=== PATIENT | female | born 1985 | race Caucasian/White ===

== ENCOUNTER 2019-01-12 11:27 | Day surgery (SDC) | payer OTHER ==
[2019-01-11 08:47] VITALS: BMI 43.4
[~2019-01-12 11:27] MED LIST: DEXAMETHASONE SOD PHOSPHATE 10 MG/ML 1 ML VIAL IV ONE; LACTATED RINGERS 1,000 ML IV SCH; LIDOCAINE 1% 20 ML VIAL (10MG/ML) FOR IV START INTRADERMA PRN; Pre Op ABX Message 1 EACH MISC MISCELLANE ONE; fentaNYL (PF) 50 MCG/ML 2 ML AMP IV PRN
[2019-01-12 12:18] VITALS: BP 151/83; PULSE 78; RESP 18; TEMP 97.3
[2019-01-12] MEDS ORDERED: ONDANSETRON 4 MG/2 ML VIAL IVP ONE (12:18)
== END 2019-01-12 17:13 | disposition home or self-care (01) ==
LOC: OR 11:27
PROVIDERS: ATTEND Orthopaedic Surgery
DX: G56.02 Carpal tunnel syndrome, left upper limb (principal); Z53.29 Procedure and treatment not carried out because of patient's decision for other reasons
CPT/HCPCS: J1100; J2405

== ENCOUNTER → 2019-01-15 | Day surgery (SDC) | payer OTHER ==
[~2019-01-15] MED LIST changes: +ACETAMINOPHEN IV (For NPO) 1,000 MG in EMPTY BAG 1 BAG IVPB ONE; +BUPIVACAINE (PF) 0.5% 30 ML VIAL SQ ONE; +GLYCOPYRROLATE 0.2 MG/ML 2 ML VIAL ONE; +KETAMINE 10 MG/ML 20 ML VIAL ONE; +KETOROLAC 30 MG/ML 1 ML VIAL ONE; +LACTATED RINGERS 1,000 ML IV ONE; -LACTATED RINGERS 1,000 ML IV SCH; +LIDOCAINE 1% 20 ML VIAL (10MG/ML) FOR IV START INTRADERMA ONE; -LIDOCAINE 1% 20 ML VIAL (10MG/ML) FOR IV START INTRADERMA PRN; +LIDOCAINE 1% INJ 10MG/ML (20 ML MDV) ONE; +LIDOCAINE 1%-EPI 1:100,000 20 ML VIAL SQ ONE; +LIDOCAINE 1%-EPI 1:100,000 30 ML VIAL SQ ONE; +MIDAZOLAM 2 MG/2 ML VIAL ONE; +ONDANSETRON 4 MG/2 ML VIAL IVP ONE; +PROPOFOL 10 MG/ML 20 ML VIAL IV ONE; -fentaNYL (PF) 50 MCG/ML 2 ML AMP IV PRN
[2019-01-15 11:02] VITALS: BMI 41.7
[2019-01-15 13:34] VITALS: TEMP 97.1
[2019-01-15 14:50] VITALS: RESP 18
[2019-01-15 14:52] VITALS: BP 109/73; PULSE 64
--- NOTE | 2019-01-16 21:19 | P.OP ---
Date of Procedure: 01/15/19 Preoperative Diagnosis: Left carpal tunnel syndrome Postoperative Diagnosis: Left carpal tunnel syndrome Procedure(s) Performed: Left endoscopic carpal tunnel release Anesthesia: VÍCTORA, local Surgeon: Mik Reece Estimated Blood Loss (ml): 2 Condition: stable Disposition: PACU Indications for Procedure: The patient is 33 year-old who was diagnosed with left carpal tunnel syndrome. Treatment options were discussed in the office and the patient chose surgical release. Surgical risks were reviewed outpatient and again in preop. The patient expressed understanding, acceptance of the risks and wished to proceed with surgery. Consent forms were signed. The surgical site was confirmed and marked preoperatively. Description of Procedure: The patient was positioned supine with the operative limb on an arm board. Anesthesia was administered uneventfully. A tourniquet was placed on the left arm. A time-out was performed which confirmed the patient, the operative side, the site and the procedure to be performed. All team members expressed agreement. Using aseptic technique, local anesthetic was injected into the subcutaneous tissues around the planned incision. The left upper extremity was then prepped and draped in standard, sterile fashion. The limb was exsanguinated with an Esmarch and the tourniquet was inflated. A transverse incision was marked just proximal to the wrist flexion crease, in line with the radial border of the ring finger. The skin was sharply incised and the subcutaneous tissues were spread. The volar carpal fascia was identified and sharply incised. This was quite thickened, even proximal to the wrist flexion crease, and the fascial window was extended proximally to release the tension and facilitate the distal exposure. A synovial elevator was used to release adhesions on the underside of the transverse carpal ligament. A dilator was used to sound and enlarge the carpal tunnel. The hamate hook was palpable ulnarly. The side-specific guide and camera were inserted. Of note, the patient's tunnel was quite tight and the smaller guide and camera were utilized. The ligament was clearly visualized above. The endoscopic blade was inserted and the distal half of the ligament was sharply divided. Residual transverse fibers were released distally and then the proximal portion of the ligament was incised. Wide release of ligament was visually confirmed. The camera was removed. Under direct visualization with loupe magnification, the remaining proximal volar carpal fascia was released with scissors. The nerve was still compressed by thickened synovial and perineural tissue. A limited neurolysis and mobilization was performed. The tourniquet was released. A small arterial bleeder near the edge of the incision was coagulated with bipolar cautery. Good hemostasis was obtained. The wound was thoroughly irrigated with normal saline and the incision was closed with interrupted 4-0 Nylon sutures. Additional local anesthetic with epinephrine was injected for postoperative pain control and adjunctive hemostasis. A soft, sterile dressing was applied. All sponge and needle counts were correct at the end of the case. The patient tolerated the procedure well and was transferred to recovery in stable condition.
== END | disposition home or self-care (01) ==
LOC: OR 10:18
PROVIDERS: ATTEND Orthopaedic Surgery
DX: G56.02 Carpal tunnel syndrome, left upper limb (principal); F17.210 Nicotine dependence, cigarettes, uncomplicated; I10 Essential (primary) hypertension; E66.01 Morbid (severe) obesity due to excess calories; F19.11 Other psychoactive substance abuse, in remission; Z86.19 Personal history of other infectious and parasitic diseases; Z68.41 Body mass index [BMI] 40.0-44.9, adult
CPT/HCPCS: 29848; 81025; J2250; J1100; J2405; J2001; J1885; J0131; J2704

== ENCOUNTER 2020-06-09 12:54 | Emergency (ER) | payer OTHER ==
[2020-06-09 13:18] VITALS: BP 169/99; PULSE 98; RESP 18; TEMP 98
[2020-06-09 13:43] LABS: Amphetamine Screen,Urine Not Detected (NotDetected); Barbiturate Screen,Urine Not Detected (NotDetected); Benzodiazepines Screen,Urine Not Detected (NotDetected); Cocaine Screen,Urine Not Detected (NotDetected); Methadone Screen, Urine Not Detected (NotDetected); Opiate Screen,Urine Not Detected (NotDetected); Oxycodone Screen, Urine Not Detected (NotDetected); Phencyclidine Screen,Urine Not Detected (NotDetected); Tricyclic Antidepressant,Urine Not Detected (NotDetected); Urn Cannabinoid Scrn Not Detected (NotDetected)
--- NOTE | 2020-06-09 14:12 | ED ---
General Adult HPI - General Chief complaint: Recheck/Abnormal Lab/Rx Stated complaint: Needs urine drug test Time Seen by Provider: 06/09/20 13:11 Source: patient, RN notes reviewed, old records reviewed Mode of arrival: EMS Limitations: no limitations - History of Present Illness Initial comments: 34-year-old female patient presents to ED request a urine drug screen. Patient is denying any acute complaints this time. Systemic: Pt denies fatigue, fever/chills, rash. Pt denies weakness, night sweats, weight loss. Neuro: Pt denies headache, visual disturbances, syncope or pre-syncope. HEENT: Pt denies ocular discharge or irritation, otalgia, rhinorrhea, pharyngitis or notable lymphadenopathy. Cardiopulmonary: Pt denies chest pain, SOB, heart palpitations, dyspnea on exertion. Abdominal/GI: Pt denies abdominal pain, n/v/d. : Pt denies dysuria, burning w/ urination, frequency/urgency. Denies new onset urinary or bowel incontinence. MSK: Pt denies myalgia, loss of strength or function in extremities. Neuro: Pt denies new onset weakness, paresthesias. - Related Data Home Medications Medication Instructions Recorded Confirmed Methadone HCl [Methadone Intensol] 125 mg PO DAILY 01/12/19 01/15/19 Allergies Allergy/AdvReac Type Severity Reaction Status Date / Time No Known Allergies Allergy Verified 01/15/19 10:41 Review of Systems ROS Statement: Those systems with pertinent positive or pertinent negative responses have been documented in the HPI. ROS Other: All systems not noted in ROS Statement are negative. Past Medical History Past Medical History: Liver Disease, Musculoskeletal Disorder Additional Past Medical History / Comment(s): hx. Hepatitis C, numbness both wrists History of Any Multi-Drug Resistant Organisms: None Reported Additional Past Surgical History / Comment(s): wisdom teeth removed Past Anesthesia/Blood Transfusion Reactions: No Reported Reaction Past Psychological History: No Psychological Hx Reported Past Alcohol Use History: Rare Past Drug Use History: Heroin - Past Family History Father Family Medical History: Cancer General Exam - General Exam Comments Initial Comments: Constitutional: NAD, AOX3, Pt has pleasant affect. HEENT: NC/AT, trachea midline, neck supple, no lymphadenopathy. External ears appear normal, without discharge. Mucous membranes moist. Eyes PERRLA, EOM intact. There is no scleral icterus. No pallor noted. Cardiopulmonary: RRR, no murmurs, rubs or gallops, no JVD noted. Lungs CTAB in anterior and posterior gallegos. No peripheral edema. Neuro: CN II-XII grossly intact. MSK: Full active ROM, ambulatory. Limitations: no limitations Course Vital Signs 06/09/20 13:11 Temperature 98 F Pulse Rate 98 Respiratory 18 Rate Blood Pressure 169/99 O2 Sat by Pulse 95 Oximetry Medical Decision Making - Medical Decision Making 34-year-old female patient presents to ED for evaluation at request of urine drug screen. Patient vital signs displayed mild hypertension she was advised to have recheck by primary care provider. Patient does report that she has a primary care provider. Drug screen is negative. Patient advised to go to medical records for release. Case discussed with Dr. Walton. - Lab Data Lab Results 06/09/20 Range/Units 13:26 Urine Opiates Screen Not Detected (NotDetected) Ur Oxycodone Screen Not Detected (NotDetected) Urine Methadone Screen Not Detected (NotDetected) Ur Propoxyphene Screen Not Detected (NotDetected) Ur Barbiturates Screen Not Detected (NotDetected) U Tricyclic Antidepress Not Detected (NotDetected) Ur Phencyclidine Scrn Not Detected (NotDetected) Ur Amphetamines Screen Not Detected (NotDetected) U Methamphetamines Scrn Not Detected (NotDetected) U Benzodiazepines Scrn Not Detected (NotDetected) Urine Cocaine Screen Not Detected (NotDetected) U Marijuana (THC) Screen Not Detected (NotDetected) Disposition Clinical Impression: Encounter for drug screening Disposition: HOME SELF-CARE Condition: Stable Additional Instructions: Follow up with medical records Obtaining Your Medical Records: A complete inpatient, outpatient surgery or emergency record of each patient's care, treatment and progress is kept in the Medical Records Department. You have the right to expect that medical information regarding your care will be treated as confidential, and [facility] has the obligation to safeguard your records against unauthorized disclosure. Printed Copy Release of your medical records Medical records may only be requested by the person they belong to or their legal manufacturer's representative according to HIPAA Federal laws. Molding Machine Operator's License or Picture ID MUST be presented. If you are sending someone on your behalf to moss picker your records, you will need to make mention of this person's name in the area on the Authorization for Release of Information and make sure to sign the Authorization for Release of Information giving [facility] permission to release your records to this person . The designated person must bring photo identification in order for them to be released. This person can be the patient, legal guardian, patient advocat e, or personal manufacturer's representative. Medical Record Copying Services: [facility] has contracted [employer] to do its copying of medical records. This national copy company is fully insured and licensed to handle confidential information. Any questions about the status of your request can be directed to the [employer] OPERATIONS MANAGEMENT TRAINEE at . Please leave a voice mail message if the Copy Passenger Car Upholsterer Apprentice does not answer. Someone will return your call. Fill out the Authorization to Release Medical Records form. Be sure to include the specific dates of service needed, specific type of information along with the reason for the request. The form can be obtained at: Medical Records [facility] Address: [address] [place], [place] [id number] Hours: Tuesday: 8 a.m. - 4:00 p.m. Medical Records is closed on weekends and holidays. Follow up with PCP in 1-2 days. Is patient prescribed a controlled substance at d/c from ED?: No Referrals: None,Stated [Primary Care Provider] - 1-2 days
== END 2020-06-09 14:17 | disposition home or self-care (01) ==
LOC: EC 12:54
DX: Z01.89 Encounter for other specified special examinations (principal); I10 Essential (primary) hypertension; Z79.891 Long term (current) use of opiate analgesic; Z86.19 Personal history of other infectious and parasitic diseases
CPT/HCPCS: 80306; 99283

== ENCOUNTER 2020-07-07 08:03 | Inpatient (IN) | payer OTHER ==
[2020-07-07] MEDS ORDERED: THIAMINE 200 MG in SODIUM CHLORIDE 0.9% 100 ML IVPB STA (09:11)
[2020-07-07] MEDS ORDERED: SODIUM CHLORIDE 0.9% 2,000 ML IV STA (09:11)
[2020-07-07] MEDS ORDERED: ONDANSETRON 4 MG/2 ML VIAL IVP STA (09:12)
[2020-07-07 09:27] LABS: Basophils % (A) 0 %; Eosinophils # (A) 0.2 k/uL (0-0.7); Eosinophils % (A) 2 %; HCT 45.1 % (34.0-46.0); HGB 14.9 gm/dL (11.4-16.0); Lymphocytes # (A) 1.9 k/uL (1.0-4.8); Lymphocytes % (A) 17 %; MCH 32.8 pg (25.0-35.0); MCV 99.5 fL (80.0-100.0); Mean Platelet Volume 7.6; Monocytes # (A) 0.4 k/uL (0-1.0); Monocytes % (A) 4 %; Neutrophils # (A) 8.5 k/uL (1.3-7.7); Neutrophils % (A) 77 %; Platelet Count 218 k/uL (150-450); RBC 4.53 m/uL (3.80-5.40); RDW 12.1 % (11.5-15.5)
[2020-07-07 09:38] LABS: ALT 114 U/L (4-34); AST 286 U/L (14-36); African American GFR (CKD) >90 (>60 ml/min/1.73 sqM); Albumin 3.5 g/dL (3.5-5.0); Alcohol <10 mg/dL; Alkaline Phosphatase 161 U/L (38-126); Amylase 31 U/L (30-110); Anion Gap 6 mmol/L; Blood Urea Nitrogen 6 mg/dL (7-17); Calcium 8.5 mg/dL (8.4-10.2); Carbon Dioxide 29 mmol/L (22-30); Chloride 103 mmol/L (98-107); Glucose 109 mg/dL (74-99); Lipase 166 U/L (23-300); Magnesium 1.5 mg/dL (1.6-2.3); Non-African American GFR(CKD) >90 (>60 ml/min/1.73 sqM); Potassium 4.5 mmol/L (3.5-5.1); Sodium 138 mmol/L (137-145); Total Bilirubin 0.6 mg/dL (0.2-1.3); Total Protein 7.1 g/dL (6.3-8.2)
[2020-07-07] MEDS ORDERED: LORazepam 2 MG/ML INJ IV PRN ×2 (09:53)
--- NOTE | 2020-07-07 10:15 | ED ---
General Adult HPI - General Chief complaint: Alcohol Stated complaint: ETOH withdrawal Time Seen by Provider: 07/07/20 08:24 Source: patient, RN notes reviewed Mode of arrival: ambulatory Limitations: no limitations - History of Present Illness Initial comments: 35-year-old female presents emergency Department chief complaint of alcohol abuse alcohol withdrawal. Patient states that she's been drinking at least 4-5 pints a day. Patient states been doing this for several years. Patient states that she cannot stop because she has severe withdrawal symptoms. She gets nausea vomiting shakes. She has not had any seizures that she knows of. Patient states that she's been increasing abdominal pain she does have a history of hepatitis C. Patient denies any hematemesis or coffee-ground emesis no melena. - Related Data Home Medications Medication Instructions Recorded Confirmed Methadone HCl [Methadone Intensol] 125 mg PO DAILY 01/12/19 01/15/19 Allergies Allergy/AdvReac Type Severity Reaction Status Date / Time No Known Allergies Allergy Verified 07/07/20 08:10 Review of Systems ROS Statement: Those systems with pertinent positive or pertinent negative responses have been documented in the HPI. ROS Other: All systems not noted in ROS Statement are negative. Past Medical History Past Medical History: Liver Disease, Musculoskeletal Disorder Additional Past Medical History / Comment(s): hx. Hepatitis C, numbness both wrists History of Any Multi-Drug Resistant Organisms: None Reported Additional Past Surgical History / Comment(s): wisdom teeth removed, left wrist carple tunnel sx Past Anesthesia/Blood Transfusion Reactions: No Reported Reaction Past Psychological History: No Psychological Hx Reported Smoking Status: Current every day smoker Past Alcohol Use History: Abuse, Daily, Heavy Past Drug Use History: Heroin - Past Family History Father Family Medical History: Cancer General Exam Limitations: no limitations General appearance: alert, in no apparent distress Head exam: Present: atraumatic, normocephalic, normal inspection Eye exam: Present: normal appearance, PERRL, EOMI. Absent: scleral icterus, conjunctival injection, periorbital swelling ENT exam: Present: normal exam, normal oropharynx, mucous membranes moist Neck exam: Present: normal inspection, full ROM. Absent: tenderness, meningismus, lymphadenopathy Respiratory exam: Present: normal lung sounds bilaterally. Absent: respiratory distress, wheezes, rales, rhonchi, stridor Cardiovascular Exam: Present: normal rhythm, tachycardia, normal heart sounds. Absent: systolic murmur, diastolic murmur, rubs, gallop, clicks GI/Abdominal exam: Present: soft, tenderness, normal bowel sounds. Absent: distended, guarding, rebound, rigid Neurological exam: Present: alert, oriented X3 Skin exam: Present: warm, dry, intact, normal color. Absent: rash Course Vital Signs 07/07/20 07/07/20 08:06 10:43 Temperature 98.0 F Pulse Rate 104 H 96 Respiratory 18 20 Rate Blood Pressure 180/118 151/78 O2 Sat by Pulse 98 96 Oximetry Medical Decision Making - Medical Decision Making 35-year-old presented for alcohol withdrawal cough abuse. Patient has severe symptoms. Patient has concerning for impending DTs. Patient will be admitted she does have moderate transaminitis lactic acidosis. Fluid bolus given at ideal body weight of 115 pounds. Patient does have mild lactacidosis, evidence of urinary tract infection. - Lab Data Result diagrams: 07/07/20 09:14 07/07/20 09:14 Lab Results 07/07/20 07/07/20 07/07/20 Range/Units 09:14 09:14 09:14 WBC 11.0 H (3.8-10.6) k/uL RBC 4.53 (3.80-5.40) m/uL Hgb 14.9 (11.4-16.0) gm/dL Hct 45.1 (34.0-46.0) % MCV 99.5 (80.0-100.0) fL MCH 32.8 (25.0-35.0) pg MCHC 33.0 (31.0-37.0) g/dL RDW 12.1 (11.5-15.5) % Plt Count 218 (150-450) k/uL Neutrophils % 77 % Lymphocytes % 17 % Monocytes % 4 % Eosinophils % 2 % Basophils % 0 % Neutrophils # 8.5 H (1.3-7.7) k/uL Lymphocytes # 1.9 (1.0-4.8) k/uL Monocytes # 0.4 (0-1.0) k/uL Eosinophils # 0.2 (0-0.7) k/uL Basophils # 0.0 (0-0.2) k/uL Sodium 138 (137-145) mmol/L Potassium 4.5 (3.5-5.1) mmol/L Chloride 103 (98-107) mmol/L Carbon Dioxide 29 (22-30) mmol/L Anion Gap 6 mmol/L BUN 6 L (7-17) mg/dL Creatinine 0.58 (0.52-1.04) mg/dL Est GFR (CKD-EPI)AfAm >90 (>60 ml/min/1.73 sqM) Est GFR (CKD-EPI)NonAf >90 (>60 ml/min/1.73 sqM) Glucose 109 H (74-99) mg/dL Plasma Lactic Acid Eric 2.4 H* (0.7-2.0) mmol/L Calcium 8.5 (8.4-10.2) mg/dL Magnesium 1.5 L (1.6-2.3) mg/dL Total Bilirubin 0.6 (0.2-1.3) mg/dL AST 286 H (14-36) U/L ALT 114 H (4-34) U/L Alkaline Phosphatase 161 H (38-126) U/L Total Protein 7.1 (6.3-8.2) g/dL Albumin 3.5 (3.5-5.0) g/dL Amylase 31 (30-110) U/L Lipase 166 (23-300) U/L Urine Color Urine Appearance (Clear) Urine pH (5.0-8.0) Ur Specific [place] (1.001-1.035) Urine Protein (Negative) Urine Glucose (UA) (Negative) Urine Ketones (Negative) Urine Blood (Negative) Urine Nitrite (Negative) Urine Bilirubin (Negative) Urine Urobilinogen (<2.0) mg/dL Ur Leukocyte Esterase (Negative) Urine RBC (0-5) /hpf Urine WBC (0-5) /hpf Ur Squamous Epith Cells (0-4) /hpf Urine Bacteria (None) /hpf Urine Mucus (None) /hpf Serum Alcohol <10 mg/dL 07/07/20 Range/Units 09:17 WBC (3.8-10.6) k/uL RBC (3.80-5.40) m/uL Hgb (11.4-16.0) gm/dL Hct (34.0-46.0) % MCV (80.0-100.0) fL MCH (25.0-35.0) pg MCHC (31.0-37.0) g/dL RDW (11.5-15.5) % Plt Count (150-450) k/uL Neutrophils % % Lymphocytes % % Monocytes % % Eosinophils % % Basophils % % Neutrophils # (1.3-7.7) k/uL Lymphocytes # (1.0-4.8) k/uL Monocytes # (0-1.0) k/uL Eosinophils # (0-0.7) k/uL Basophils # (0-0.2) k/uL Sodium (137-145) mmol/L Potassium (3.5-5.1) mmol/L Chloride (98-107) mmol/L Carbon Dioxide (22-30) mmol/L Anion Gap mmol/L BUN (7-17) mg/dL Creatinine (0.52-1.04) mg/dL Est GFR (CKD-EPI)AfAm (>60 ml/min/1.73 sqM) Est GFR (CKD-EPI)NonAf (>60 ml/min/1.73 sqM) Glucose (74-99) mg/dL Plasma Lactic Acid Eric (0.7-2.0) mmol/L Calcium (8.4-10.2) mg/dL Magnesium (1.6-2.3) mg/dL Total Bilirubin (0.2-1.3) mg/dL AST (14-36) U/L ALT (4-34) U/L Alkaline Phosphatase (38-126) U/L Total Protein (6.3-8.2) g/dL Albumin (3.5-5.0) g/dL Amylase (30-110) U/L Lipase (23-300) U/L Urine Color Yellow Urine Appearance Cloudy H (Clear) Urine pH 6.0 (5.0-8.0) Ur Specific [place] 1.011 (1.001-1.035) Urine Protein Negative (Negative) Urine Glucose (UA) Negative (Negative) Urine Ketones Negative (Negative) Urine Blood Negative (Negative) Urine Nitrite Positive H (Negative) Urine Bilirubin Negative (Negative) Urine Urobilinogen <2.0 (<2.0) mg/dL Ur Leukocyte Esterase Large H (Negative) Urine RBC 1 (0-5) /hpf Urine WBC 35 H (0-5) /hpf Ur Squamous Epith Cells 2 (0-4) /hpf Urine Bacteria Moderate H (None) /hpf Urine Mucus Rare H (None) /hpf Serum Alcohol mg/dL Disposition Clinical Impression: Alcohol withdrawal syndrome, UTI (urinary tract infection), Transaminitis, Lactic acidosis Disposition: ADMITTED IP TO THIS HOSP Condition: Fair Referrals: None,Stated [Primary Care Provider] - 1-2 days
[2020-07-07] MEDS ORDERED: MAGNESIUM OXIDE 400 MG TAB PO STA (10:36)
[2020-07-07 10:47] LABS: Appearance,Urine Cloudy (Clear); Bacteria,Urine Moderate /hpf; Bilirubin,Urine Negative (Negative); Blood,Urine Negative (Negative); Color,Urine Yellow; Glucose,Urine (UA) Negative (Negative); Ketones,Urine Negative (Negative); Leukocyte Esterase,Urine Large (Negative); Mucus,Urine Rare /hpf; Nitrite,Urine Positive (Negative); Protein,Urine Negative (Negative); RBC,Urine 1 /hpf (0-5); Specific Gravity,Urine 1.011 (1.001-1.035); Squamous Epithelial Cell,Urine 2 /hpf (0-4); Urobilinogen,Urine <2.0 mg/dL (<2.0); WBC,Urine 35 /hpf (0-5)
[2020-07-07] MEDS ORDERED: cefTRIAXone IN SWFI 1,000 MG/10 ML SYRINGE IVP STA (11:27)
[2020-07-07] MEDS ORDERED: ONDANSETRON 4 MG/2 ML VIAL IVP PRN (11:30)
[2020-07-07] MEDS ORDERED: NALOXONE 0.4 MG/ML 1 ML VIAL IV PRN (11:30)
[2020-07-07] MEDS ORDERED: SODIUM CHLORIDE 0.9% 1,000 ML with MVI, ADULT NO.4 WITH VIT K 10 ML, THIAMINE 100 MG, F... IV ONE ×4 (11:31)
[2020-07-07] MEDS: LORazepam 2 MG/ML INJ IV PRN ×2 (11:42→20:20)
[2020-07-07] MEDS ORDERED: PANTOPRAZOLE 40 MG/10 ML VIAL IVP SCH (14:00)
--- NOTE | 2020-07-07 14:29 | US ---
EXAMINATION TYPE: US gallbladder DATE OF EXAM: 07/07/2020 COMPARISON: NONE CLINICAL HISTORY: elevated liver enzymes Pain patient states has been drinking to much for years. exa m limited due to body habitus.. EXAM MEASUREMENTS: Liver Length: 26 cm Gallbladder Wall: .3 cm CBD: .5 cm Right Kidney: 13.2 x 4.6 xn4.7 cm Pancreas: Echogenic Liver: Increased attenuation hepatomegaly Gallbladder: No stones seen Evidence for sonographic Owens's sign: No CBD: wnl Right Kidney: No hydronephrosis or masses seen IMPRESSION: 1. Moderate fatty infiltration liver, Hepatomegaly.
--- NOTE | 2020-07-07 16:15 | P.HPIM ---
History of Present Illness Patient is a 55-year-old female came in for alcohol withdrawal and patient does drink about 4 -5 pints of alcohol every day. Patient was comparing of right upper quadrant abdominal pain which appeared to be musculoskeletal not assoc iated with food, sharp in nature mostly in the right upper back and lower chest with mild pleuritic competent because of which I'm opting d-dimer and ultrasound of the liver and gallbladder patient does smoke one half pack of cigarettes per day patient does have history of hepatitis C does have elevated liver enzymes. Patient had withdrawals in the past patient denied any nausea vomiting. Review of Systems REVIEW OF SYSTEMS: CONSTITUTIONAL: No fever, no malaise, no fatigue. HEENT: No recent visual problems or hearing problems. Denied any sore throat. CARDIOVASCULAR: No chest pain, orthopnea, PND, no palpitations, no syncope. PULMONARY: No shortness of breath, no cough, no hemoptysis. GASTROINTESTINAL: As mentioned in HPI NEUROLOGICAL: No headaches, no weakness, no numbness. HEMATOLOGICAL: Denies any bleeding or petechiae. GENITOURINARY: Denies any burning micturition, frequency, or urgency. MUSCULOSKELETAL/RHEUMATOLOGICAL: Denies any joint pain, swelling, or any muscle pain. ENDOCRINE: Denies any polyuria or polydipsia. The rest of the 14-point review of systems is negative. Past Medical History Past Medical History: Asthma, Liver Disease, Musculoskeletal Disorder Additional Past Medical History / Comment(s): alcohol abuse, past withdrawals- shaking/ nausea, hepatitis C, numbness both wrists with R wrist worse, History of Any Multi-Drug Resistant Organisms: None Reported Additional Past Surgical History / Comment(s): wisdom teeth removed, left wrist carple tunnel sx Past Anesthesia/Blood Transfusion Reactions: No Reported Reaction Smoking Status: Current every day smoker - Past Family History Father Family Medical History: Cancer Additional Family Medical History / Comment(s): Father of leukemia Mother Family Medical History: Myocardial Infarction (IA) Additional Family Medical History / Comment(s): Mother of a drug induced [place] Medications and Allergies Home Medications Medication Instructions Recorded Confirmed Type No Known Home Medications 07/07/20 07/07/20 History Allergies Allergy/AdvReac Type Severity Reaction Status Date / Time No Known Allergies Allergy Verified 07/07/20 13:44 Physical Exam Vitals: Vital Signs Temp Pulse Resp BP Pulse Ox 07/07/20 13:51 91 18 131/92 93 L 07/07/20 12:00 98 18 109/79 96 07/07/20 10:43 96 20 151/78 96 07/07/20 08:06 98.0 F 104 H 18 180/118 98 Intake and Output 07/07/20 07/07/20 07/07/20 06:59 14:59 22:59 Other: Weight 104.326 kg PHYSICAL EXAMINATION: GENERAL: The patient is alert and oriented x3, not in any acute distress. Obese HEENT: Pupils are round and equally reacting to light. EOMI. No scleral icterus. No conjunctival pallor. Normocephalic, atraumatic. No pharyngeal erythema. No thyromegaly. CARDIOVASCULAR: S1 and S2 present. No murmurs, rubs, or gallops. PULMONARY: Chest is clear to auscultation, no wheezing or crackles. ABDOMEN: Soft, nontender, nondistended, normoactive bowel sounds. No palpable organomegaly. MUSCULOSKELETAL: No joint swelling or deformity. EXTREMITIES: No cyanosis, clubbing, or pedal edema. NEUROLOGICAL: Gross neurological examination did not reveal any focal deficits. SKIN: No rashes. Results CBC & Chem 7: 07/07/20 09:14 07/07/20 09:14 Labs: Abnormal Lab Results - Last 24 Hours (Table) 07/07/20 07/07/20 07/07/20 Range/Units 09:14 09:14 09:14 WBC 11.0 H (3.8-10.6) k/uL Neutrophils # 8.5 H (1.3-7.7) k/uL BUN 6 L (7-17) mg/dL Glucose 109 H (74-99) mg/dL Plasma Lactic Acid Eric 2.4 H* (0.7-2.0) mmol/L Magnesium 1.5 L (1.6-2.3) mg/dL AST 286 H (14-36) U/L ALT 114 H (4-34) U/L Alkaline Phosphatase 161 H (38-126) U/L Urine Appearance (Clear) Urine Nitrite (Negative) Ur Leukocyte Esterase (Negative) Urine WBC (0-5) /hpf Urine Bacteria (None) /hpf Urine Mucus (None) /hpf 09/28/20 Range/Units 09:17 WBC (3.8-10.6) k/uL Neutrophils # (1.3-7.7) k/uL BUN (7-17) mg/dL Glucose (74-99) mg/dL Plasma Lactic Acid Eric (0.7-2.0) mmol/L Magnesium (1.6-2.3) mg/dL AST (14-36) U/L ALT (4-34) U/L Alkaline Phosphatase (38-126) U/L Urine Appearance Cloudy H (Clear) Urine Nitrite Positive H (Negative) Ur Leukocyte Esterase Large H (Negative) Urine WBC 35 H (0-5) /hpf Urine Bacteria Moderate H (None) /hpf Urine Mucus Rare H (None) /hpf Microbiology - Last 24 Hours (Table) 07/07/20 09:17 Urine Culture - Preliminary Urine,Voided Thrombosis Risk Factor Assmnt - Choose All That Apply Any of the Below Risk Factors Present?: Yes Each Factor Represents 1 point: Obesity (BMI >25) Other Risk Factors: No Other congenital or acquired thrombophilia - If yes, enter type in comment: No Thrombosis Risk Factor Assessment Total Risk Factor Score: 1 Thrombosis Risk Factor Assessment Level: Low Risk Assessment and Plan Plan: -Alcohol withdrawal, delirium tremens: Patient will be continued on Ativan therapy protocol. Continue with IV fluids thiamine multivitamin supplementation. -Lactic acidosis: Secondary to intravascular depletion from excess alcohol use. Fluids as mentioned above -Elevated liver enzymes probably secondary to chronic hepatitis from hepatitis C and acute alcoholic hepatitis. -Right upper quadrant abdominal pain: Clinically doesn't appear to be cholecystitis obtained a ultrasound of the liver and gallbladder which didn't show any cholelithiasis. -Rule out PE with a d-dimer -Musculoskeletal abdominal pain -Hypomagnesemia seconded alcoholism magnesium will be replaced -GI prophylaxis with the Protonix due to prophylaxis with Lovenox
[2020-07-07] MEDS: MAGNESIUM SULFATE-D5W PMX 1 GM in DEXTROSE/WATER 1 100ML.BAG IVPB SCH ×2 (17:27→19:06)
[2020-07-07] MEDS: THIAMINE 100 MG TAB PO SCH (18:00)
[2020-07-07] MEDS: NICOTINE 21MG/24HR PATCH TRANSDERM SCH (18:00)
[2020-07-07] MEDS: SODIUM CHLORIDE 0.9% 1,000 ML IV SCH (18:00)
[2020-07-08] MEDS: SODIUM CHLORIDE 0.9% 1,000 ML IV SCH ×2 (03:49→11:09)
[2020-07-08 06:41] LABS: HGB 13.8 gm/dL (11.4-16.0); MCH 32.7 pg (25.0-35.0); MCHC 32.1 g/dL (31.0-37.0); Mean Platelet Volume 7.8; Platelet Count 189 k/uL (150-450); RBC 4.21 m/uL (3.80-5.40); RDW 12.1 % (11.5-15.5); WBC 8.6 k/uL (3.8-10.6)
[2020-07-08] MEDS: NICOTINE 21MG/24HR PATCH TRANSDERM SCH (07:32)
[2020-07-08] MEDS ORDERED: PANTOPRAZOLE 40 MG TABLET PO SCH (07:45)
[2020-07-08] MEDS ORDERED: ENOXAPARIN 40 MG/0.4 ML SYRINGE SQ SCH (09:00)
[2020-07-08 09:03] LABS: African American GFR (CKD) 147.4 (60.0-200.0); Albumin 3.5 g/dL (3.80-4.90); Albumin/Globulin Ratio 1.25 (1.60-3.17); Anion Gap 8.9 mmol/L (4.00-12.00); Calcium 7.9 mg/dL (8.7-10.3); Carbon Dioxide 25.1 mmol/L (21.6-31.8); Globulin 2.8 g/dL (1.6-3.3); Magnesium 1.9 mg/dL (1.5-2.4); Non-African American GFR(CKD) 127.2 (60.0-200.0); Potassium 4.3 mmol/L (3.5-5.5); Total Protein 6.3 g/dL (6.2-8.2)
[2020-07-08] MEDS: LORazepam 2 MG/ML INJ IV PRN ×2 (10:12→15:00)
[2020-07-08] MEDS: THIAMINE 100 MG TAB PO SCH (11:30)
[2020-07-08 11:53] VITALS: BP 140/94; PULSE 103; RESP 18; TEMP 98.5
--- NOTE | 2020-07-08 12:19 | P.PN ---
Subjective Patient is admitted for alcohol withdrawal and patient is having significant withdrawals at this time. Patient denied any dysuria yesterday but she started complaining of dysuria today because of which patient was started back on Rocephin and she received 1 dose yesterday because of abnormal ua. She states that her symptoms started after IV fluids patient urinary frequency and urgency can be explained by IV fluids but not a dysuria because of which patient will be treated for UTI. Constitutional: Denied any fatigue denied any fever. Cardio vascular: denied any chest pain, palpitations Gastrointestinal denied any nausea vomiting Pulmonary: Denied any shortness of breath cough Neurologic denied any new focal deficits All inpatient medications were reviewed and appropriate changes in these medications as dictated in the interval history and assessment and plan. Objective - Vital Signs Vital signs: Vital Signs Temp 98.5 F 07/08/20 11:52 Pulse 103 H 07/08/20 11:52 Resp 18 07/08/20 11:52 BP 140/94 07/08/20 11:52 Pulse Ox 97 07/08/20 11:52 Intake & Output 07/07/20 07/08/20 07/08/20 18:59 06:59 18:59 Intake Total 1200 1000 Balance 1200 1000 Weight 104.326 kg Intake: Intake, IV Titration 1200 1000 Amount Magnesium Sulfate-D5w Pmx 200 1 gm In Dextrose/Water 1 100ml.bag @ 100 mls/hr IVPB Q1H JE[facility]ANY Rx#: [id number] Sodium Chloride 0.9% 1, 1000 900 000 ml @ 100 mls/hr IV . Q10H [facility]ANY Rx#:[id number] cefTRIAXone 2 gm In 100 Sodium Chloride 0.9% 50 ml @ 100 mls/hr IVPB Q24HR [facility]OVANY Rx#:[id number] Other: Voiding Method Toilet Toilet # Voids 1 3 - Exam PHYSICAL EXAMINATION: GENERAL: The patient is alert and oriented x3, not in any acute distress. Obese HEENT: Pupils are round and equally reacting to light. EOMI. No scleral icterus. No conjunctival pallor. Normocephalic, atraumatic. No pharyngeal erythema. No thyromegaly. CARDIOVASCULAR: S1 and S2 present. No murmurs, rubs, or gallops. PULMONARY: Chest is clear to auscultation, no wheezing or crackles. ABDOMEN: Soft, nontender, nondistended, normoactive bowel sounds. No palpable organomegaly. MUSCULOSKELETAL: No joint swelling or deformity. EXTREMITIES: No cyanosis, clubbing, or pedal edema. NEUROLOGICAL: Gross neurological examination did not reveal any focal deficits. SKIN: No rashes. - Labs CBC & Chem 7: 07/08/20 05:51 07/08/20 05:51 Labs: Abnormal Lab Results - Last 24 Hours (Table) 07/08/20 07/08/20 Range/Units 05:51 05:51 MCV 102.0 H (80.0-100.0) fL BUN 6.0 L (9.0-27.0) mg/dL Creatinine 0.5 L (0.6-1.5) mg/dL Calcium 7.9 L (8.7-10.3) mg/dL AST 185 H (13-35) U/L ALT 99 H (8-44) U/L Alkaline Phosphatase 150 H (41-126) U/L Albumin 3.50 L (3.80-4.90) g/dL Albumin/Globulin Ratio 1.25 L (1.60-3.17) g/dL Microbiology - Last 24 Hours (Table) 07/07/20 09:17 Urine Culture - Preliminary Urine,Voided Assessment and Plan Plan: -Alcohol withdrawal, delirium tremens: Patient will be continued on Ativan therapy protocol. Continue with IV fluids thiamine multivitamin supplementation. -Lactic acidosis: Secondary to intravascular depletion from excess alcohol use. And possibility of UTI -Possible urinary tract infection. Urine cultures patient was started on Rocephin 2 g daily -Elevated liver enzymes probably secondary to chronic hepatitis from hepatitis C and acute alcoholic hepatitis. Liver enzymes improved a bit -Right upper quadrant abdominal pain: Clinically doesn't appear to be cholecystitis obtained a ultrasound of the liver and gallbladder which didn't show any cholelithiasis. -Ruled out PE with a d-dimer -Musculoskeletal abdominal pain -Hypomagnesemia seconded alcoholism magnesium will be replaced -GI prophylaxis with the Protonix due to prophylaxis with Lovenox
--- NOTE | 2020-07-09 11:20 | P.DS ---
Providers Date of admission: 07/08/20 14:03 Expected date of discharge: 07/08/20 Attending physician: Maria E Oliveira Primary care physician: Stated None Hospital Course: Patient left AMA Patient Condition at Discharge: Fair Plan - Discharge Summary Discharge Rx Participant: No New Discharge Prescriptions: New Thiamine [Vitamin B-1] 100 mg PO DAILY #30 tab Discharge Medication List Thiamine [Vitamin B-1] 100 mg PO DAILY #30 tab 07/08/20 [Rx] Follow up Appointment(s)/Referral(s): Durga Mcneal MD [REFERRING] - 3 Days Discharge Disposition: Left Against Medical Advice
== END 2020-07-08 17:39 | disposition left against medical advice (07) | DRG 894 ==
LOC: EC 08:03 → 6NMEDSUR 11:30 → OBSVTOIN 07-08 14:03
PROVIDERS: ADMIT Hospitalist; ATTEND Hospitalist
DX: F10.231 Alcohol dependence with withdrawal delirium (principal); E87.2 Acidosis; N39.0 Urinary tract infection, site not specified; Z68.41 Body mass index [BMI] 40.0-44.9, adult; K70.10 Alcoholic hepatitis without ascites; E66.9 Obesity, unspecified; F17.210 Nicotine dependence, cigarettes, uncomplicated; J45.909 Unspecified asthma, uncomplicated; B18.2 Chronic viral hepatitis C; E83.42 Hypomagnesemia; R10.11 Right upper quadrant pain; Z80.6 Family history of leukemia; Z82.49 Family history of ischemic heart disease and other diseases of the circulatory system
CPT/HCPCS: 36415; 76705; 80053; 80320; 81001; 82150; 83605; 83690; 83735; 85025; 85027; 85379; 87040; 87077; 87086; 87186; 96361; 96365; 96366; 96375; 99285

== ENCOUNTER 2023-07-30 10:54 | Emergency (ER) | payer OTHER ==
[2023-07-30] MEDS ORDERED: SODIUM CHLORIDE 0.9% 1,000 ML IV ONE (11:13)
--- NOTE | 2023-07-30 11:17 | ED ---
General Adult HPI - General Chief complaint: Overdose Stated complaint: Overdose Time Seen by Provider: 07/30/23 10:54 Source: patient, RN notes reviewed, old records reviewed Mode of arrival: ambulatory Limitations: no limitations - History of Present Illness Initial comments: This is 38-year-old female presents emergency Department after she was found unresponsive and staff stated they did not feel a pulse. Staff started CPR and they gave her Narcan patient started to wake up and then eventually came back to being alert and oriented 4. Patient states currently that her brother brought her some white powder substance she thinks was found on and she snorted. Patient states currently she has no complaints. Patient denies any headache patient denies numbness weakness per patient denies chest pain difficult breathing shortness of breath. Patient denies any palpitations. Patient denies abdominal pain patient denies nausea vomiting diarrhea. Patient denies any back pain. Patient states she's got chronic pain in the hip and the foot and that continues to hurt her but it's no different than her baseline. - Related Data Previous Rx's Medication Instructions Recorded Thiamine [Vitamin B-1] 100 mg PO DAILY #30 tab 07/08/20 Allergies Allergy/AdvReac Type Severity Reaction Status Date / Time No Known Allergies Allergy Verified 07/30/23 11:06 Review of Systems ROS Statement: Those systems with pertinent positive or pertinent negative responses have been documented in the HPI. ROS Other: All systems not noted in ROS Statement are negative. Past Medical History Past Medical History: Asthma, Liver Disease, Musculoskeletal Disorder Additional Past Medical History / Comment(s): alcohol abuse, past withdrawals-shaking/ nausea, hepatitis C, numbness both wrists with R wrist worse, History of Any Multi-Drug Resistant Organisms: None Reported Additional Past Surgical History / Comment(s): wisdom teeth removed, left wrist carple tunnel sx Past Anesthesia/Blood Transfusion Reactions: No Reported Reaction Past Psychological History: Anxiety Smoking Status: Current every day smoker Past Alcohol Use History: Occasional - Past Family History Father Family Medical History: Cancer Additional Family Medical History / Comment(s): Father of leukemia Mother Family Medical History: Myocardial Infarction ([place]) Additional Family Medical History / Comment(s): Mother of a drug induced [place] General Exam - General Exam Comments Initial Comments: GENERAL: Patient is well-developed and well-nourished. Patient is nontoxic and well- hydrated and is in mild distress. ENT: Neck is soft and supple. No significant lymphadenopathy is noted. Oropharynx is clear. Moist mucous membranes. Neck has full range of motion without eliciting any pain. EYES: The sclera were anicteric and conjunctiva were pink and moist. Extraocular movements were intact and pupils were equal round and reactive to light. Eyelids were unremarkable. PULMONARY: Unlabored respirations. Good breath sounds bilaterally. No audible rales rhonchi or wheezing was noted. CARDIOVASCULAR: There is a regular rate and rhythm without any murmurs gallops or rubs. ABDOMEN: Soft and nontender with normal bowel sounds. SKIN: Skin is clear with no lesions or rashes and otherwise unremarkable. NEUROLOGIC: Patient is alert and oriented x3. Cranial nerves II through XII are grossly intact. Motor and sensory are also intact. Normal speech, volume and content. Symmetrical smile. MUSCULOSKELETAL: Normal extremities with adequate strength and full range of motion. LYMPHATICS: No significant lymphadenopathy is noted PSYCHIATRIC: Normal psychiatric evaluation. Limitations: no limitations Course Vital Signs 07/30/23 07/30/23 07/30/23 10:56 10:58 11:00 Temperature 99.2 F Pulse Rate 117 H 110 H Respiratory 18 16 Rate Blood Pressure 91/56 101/56 101/56 O2 Sat by Pulse 97 87 L Oximetry 07/30/23 07/30/23 07/30/23 11:12 11:34 12:00 Temperature Pulse Rate 117 H 103 H 98 Respiratory 18 18 17 Rate Blood Pressure 85/54 93/53 98/55 O2 Sat by Pulse 98 98 97 Oximetry Medical Decision Making - Medical Decision Making EKG was interpreted by myself. EKG shows a sinus tachycardia at 115 bpm UT interval 258 QRS is under QT interval 340 QTC is 49 per patient's EKG shows no ST segment elevation or depression. Was pt. sent in by a medical professional or institution (, PA, PHOTOLETTERING MACHINE OPERATOR, urgent care, hospital, or half-way...) When possible be specific @ -No Did you speak to anyone other than the patient for history (EMS, parent, family, police, friend...)? What history was obtained from this source @ -No Did you review nursing and triage notes (agree or disagree)? Why? @ -I reviewed and agree with nursing and triage notes Were old charts reviewed (outside hosp., previous admission, EMS record, old EKG, old radiological studies, urgent care reports/EKG's, half-way records)? Report findings @ -I reviewed prior charts in prior lab work on this patient Differential Diagnosis (chest pain, altered mental status, abdominal pain women, abdominal pain men, vaginal bleeding, weakness, fever, dyspnea, syncope, headache, dizziness, GI bleed, back pain, seizure, CVA, palpatations, mental health, musculoskeletal)? @ -Differential Dizziness: Benign paroxysmal positional Vertigo, Menieres disease, otitis media, acoustic neuroma, vertebrobasilar insufficiency, cerebellar stroke, encephalitis, hypovo lemic, arrhythmia, coronary artery syndrome, anemia, this is not meant to be an all-inclusive list EKG interpreted by me (3pts min.). @ -As above X-rays interpreted by me (1pt min.). @ -None done CT interpreted by me (1pt min.). @ -CT of the brain showed no acute abnormality U/S interpreted by me (1pt. min.). @ -None done What testing was considered but not performed or refused? (CT, X-rays, U/S, labs)? Why? @ -None What meds were considered but not given or refused? Why? @ -None Did you discuss the management of the patient with other professionals (professionals i.e. , PA, PHOTOLETTERING MACHINE OPERATOR, lab, RT, psych nurse, social science teacher, pluck separator, teacher, promotion officer, outpatient case manager)? Give summary @ -No Was smoking cessation discussed for >3mins.? @ -No Was critical care preformed (if so, how long)? @ -No Were there social determinants of health that impacted care today? How? (Homelessness, low income, unemployed, alcoholism, drug addiction, navarrete sportation, low edu. Level, literacy, decrease access to med. care, [facility], rehab)? @ -No Was there de-escalation of care discussed even if they declined (Discuss DNR or withdrawal of care, Hospice)? DNR status @ -No What co-morbidities impacted this encounter? (DM, HTN, Smoking, COPD, CAD, Cancer, CVA, ARF, Chemo, Hep., AIDS, mental health diagnosis, sleep apnea, morbid obesity)? @ -None Was patient admitted / discharged? Hospital course, mention meds given and route, prescriptions, significant lab abnormalities, going to OR and other pertinent info. @ -Patient was given Ativan and Zofran and then the little bit later some Valium. Patient's CT of the brain was normal. Patient's lab work was normal. I went back into the room patient was sleeping when I awoke her she said she was able to stand but we got her up she was able to stand and sit down and use her phone without problem. Undiagnosed new problem with uncertain prognosis? @ -No Drug Therapy requiring intensive monitoring for toxicity (Heparin, Nitro, Insulin, Cardizem)? @ -No Were any procedures done? @ -No Diagnosis/symptom? @ -Dizziness Acute, or Chronic, or Acute on Chronic? @ -Acute Uncomplicated (without systemic symptoms) or Complicated (systemic symptoms)? @ -Complicated Side effects of treatment? @ -No Exacerbation, Progression, or Severe Exacerbation? @ -No Poses a threat to life or bodily function? How? (Chest pain, [place], [place], pneumonia, PE, COPD, DKA, ARF, appy, cholecystitis, CVA, Diverticulitis, Homicidal, Suicidal, threat to staff... and all critical care pts) @ -No] - Lab Data Result diagrams: 07/30/23 11:06 07/30/23 11:06 Lab Results 07/30/23 07/30/23 07/30/23 Range/Units 11:06 11:06 11:06 WBC 9.6 (3.8-10.6) k/uL RBC 3.47 L (3.80-5.40) m/uL Hgb 10.1 L (11.4-16.0) gm/dL Hct 31.2 L (34.0-46.0) % MCV 89.8 (80.0-100.0) fL MCH 29.2 (25.0-35.0) pg MCHC 32.5 (31.0-37.0) g/dL RDW 14.2 (11.5-15.5) % Plt Count 230 (150-450) k/uL MPV 7.5 Neutrophils % 81 % Lymphocytes % 10 % Monocytes % 5 % Eosinophils % 3 % Basophils % 0 % Neutrophils # 7.8 H (1.3-7.7) k/uL Lymphocytes # 0.9 L (1.0-4.8) k/uL Monocytes # 0.5 (0-1.0) k/uL Eosinophils # 0.3 (0-0.7) k/uL Basophils # 0.0 (0-0.2) k/uL Hypochromasia Slight Sodium 136 L (137-145) mmol/L Potassium 3.4 L (3.5-5.1) mmol/L Chloride 104 (98-107) mmol/L Carbon Dioxide 18 L (22-30) mmol/L Anion Gap 14 mmol/L BUN 17 (7-17) mg/dL Creatinine 0.98 (0.52-1.04) mg/dL Est GFR (CKD-EPI)AfAm 86 (>60 ml/min/1.73 sqM) Est GFR (CKD-EPI)NonAf 74 (>60 ml/min/1.73 sqM) Glucose 164 H (74-99) mg/dL Calcium 8.8 (8.4-10.2) mg/dL Magnesium 1.6 (1.6-2.3) mg/dL Total Bilirubin 0.5 (0.2-1.3) mg/dL AST 38 H (14-36) U/L ALT 31 (4-34) U/L Alkaline Phosphatase 112 (38-126) U/L Troponin I 0.029 (0.000-0.034) ng/mL Total Protein 7.8 (6.3-8.2) g/dL Albumin 3.7 (3.5-5.0) g/dL Disposition Clinical Impression: Accidental drug overdose, Narcotic abuse Disposition: HOME SELF-CARE Condition: Good Instructions (If sedation given, give patient instructions): Adult Overdose (ED), Narcotic Use Disorder (ED) Is patient prescribed a controlled substance at d/c from ED?: No Referrals: None,Stated [Primary Care Provider] - 1-2 days Time of Disposition: 12:55
[2023-07-30 11:29] LABS: Basophils % (A) 0 %; Eosinophils # (A) 0.3 k/uL (0-0.7); Eosinophils % (A) 3 %; HCT 31.2 % (34.0-46.0); HGB 10.1 gm/dL (11.4-16.0); Hypochromasia Slight; Lymphocytes # (A) 0.9 k/uL (1.0-4.8); Lymphocytes % (A) 10 %; MCH 29.2 pg (25.0-35.0); MCHC 32.5 g/dL (31.0-37.0); MCV 89.8 fL (80.0-100.0); Mean Platelet Volume 7.5; Monocytes # (A) 0.5 k/uL (0-1.0); Monocytes % (A) 5 %; Neutrophils # (A) 7.8 k/uL (1.3-7.7); Neutrophils % (A) 81 %; Platelet Count 230 k/uL (150-450); RBC 3.47 m/uL (3.80-5.40); RDW 14.2 % (11.5-15.5); WBC 9.6 k/uL (3.8-10.6)
[2023-07-30 11:36] LABS: ALT 31 U/L (4-34); AST 38 U/L (14-36); African American GFR (CKD) 86 (>60 ml/min/1.73 sqM); Albumin 3.7 g/dL (3.5-5.0); Alkaline Phosphatase 112 U/L (38-126); Anion Gap 14 mmol/L; Blood Urea Nitrogen 17 mg/dL (7-17); Calcium 8.8 mg/dL (8.4-10.2); Carbon Dioxide 18 mmol/L (22-30); Chloride 104 mmol/L (98-107); Glucose 164 mg/dL (74-99); Magnesium 1.6 mg/dL (1.6-2.3); Non-African American GFR(CKD) 74 (>60 ml/min/1.73 sqM); Potassium 3.4 mmol/L (3.5-5.1); Sodium 136 mmol/L (137-145); Total Bilirubin 0.5 mg/dL (0.2-1.3); Total Protein 7.8 g/dL (6.3-8.2)
--- NOTE | 2023-07-30 12:04 | XR ---
EXAMINATION TYPE: XR chest 2V DATE OF EXAM: 07/30/2023 11:45 AM CLINICAL INDICATION:Female, 38 years old with history of Chest Pain; COMPARISON: none TECHNIQUE: XR chest 2V Frontal and lateral views of the chest. FINDINGS: Lungs/Pleura: There is no evidence of pleural effusion, focal consolidation, or pneumothorax. Pulmonary vascularity: Unremarkable. Heart/mediastinum: Cardiomediastinal silhouette is unremarkable. Musculoskeletal: No acute osseous pathology. Right PICC with vena cava Distal tip Terminating at superior vena cava. IMPRESSION: No acute cardiopulmonary disease/process.
[2023-07-30 13:11] LABS: Amphetamine Screen,Urine Not Detected (NotDetected); Barbiturate Screen,Urine Not Detected (NotDetected); Benzodiazepines Screen,Urine Not Detected (NotDetected); Cocaine Screen,Urine Not Detected (NotDetected); Methadone Screen, Urine Not Detected (NotDetected); Opiate Screen,Urine Detected (NotDetected); Oxycodone Screen, Urine Detected (NotDetected); Phencyclidine Screen,Urine Not Detected (NotDetected); Tricyclic Antidepressant,Urine Detected (NotDetected); Urn Cannabinoid Scrn Not Detected (NotDetected)
[2023-07-30 15:12] VITALS: BP 100/56; PULSE 92; RESP 18; TEMP 97.8
== END 2023-07-30 14:45 | disposition home or self-care (01) ==
LOC: EC 10:54
DX: T40.601A Poisoning by unspecified narcotics, accidental (unintentional), initial encounter (principal); F11.10 Opioid abuse, uncomplicated; J45.909 Unspecified asthma, uncomplicated; F17.200 Nicotine dependence, unspecified, uncomplicated; Z86.59 Personal history of other mental and behavioral disorders
CPT/HCPCS: 36415; 71046; 80053; 80306; 83735; 84484; 85025; 93005; 96360; 99285